=== PATIENT | male | born 1970 | race Caucasian/White ===

== ENCOUNTER 2021-09-18 06:48 | Emergency (ER) | payer SELFPAY ==
[2021-09-19] MEDS ORDERED: Insulin Aspart 100 Units/ML 3 ML Pen ONE (01:52)
== END 2021-09-18 07:59 | disposition home or self-care (01) ==
LOC: LB.ED 06:48
DX: S90.862A Insect bite (nonvenomous), left foot, initial encounter (principal); L03.116 Cellulitis of left lower limb; W57.XXXA Bitten or stung by nonvenomous insect and other nonvenomous arthropods, initial encounter
CPT/HCPCS: 99282; J1815